=== PATIENT | male | born 1945 | race Caucasian/White ===

== ENCOUNTER 2016-07-23 19:08 | Emergency (ER) | payer MEDICARE, BC ==
[~2016-07-23] VITALS: Ht 170.2 cm; Wt 63.6 kg
[2016-07-23 19:15] VITALS: TEMP 97.3
[2016-07-23] MEDS ORDERED: ASPIRIN 81M81 MG/TA2 PO (19:18)
[2016-07-23] MEDS ORDERED: NATURE'S BL400 IU/ML PO (19:18)
[2016-07-23] MEDS ORDERED: PRINIVIL5 MG PO (19:18)
[2016-07-23] MEDS ORDERED: PROAIR HFA0.09 MG/AC IH (19:19)
[2016-07-23] MEDS ORDERED: ZITHROMAX 250M250 MG PO (21:16)
[2016-07-23] MEDS ORDERED: PREDNISONE20 MG PO (21:16)
[2016-07-23 21:31] VITALS: BP 139/87; PULSE 96
== END 2016-07-23 21:33 | disposition home or self-care (01) ==
LOC: COL.ER 19:08
DX: J44.0 Chronic obstructive pulmonary disease with (acute) lower respiratory infection (principal); J20.9 Acute bronchitis, unspecified; I10 Essential (primary) hypertension; F17.210 Nicotine dependence, cigarettes, uncomplicated
CPT/HCPCS: J7512

== ENCOUNTER 2016-10-03 06:36 | Emergency (ER) | payer MEDICARE, BC ==
[~2016-10-03] VITALS: Ht 170.2 cm; Wt 62.7 kg
[~2016-10-03 06:36] MED LIST: ASPIRIN 81M81 MG/TA2 PO; NATURE'S BL400 IU/ML PO; PREDNISONE20 MG PO; PRINIVIL5 MG PO; PROAIR HFA0.09 MG/AC IH; ZITHROMAX 250M250 MG PO
[2016-10-03 06:39] VITALS: PULSE 90; TEMP 97.7
[2016-10-03] MEDS ORDERED: ZITHROMAX Z PA250 MG PO (08:01)
[2016-10-03] MEDS ORDERED: PREDNISONE20 MG PO (08:01)
[2016-10-03 09:10] VITALS: BP 173/89
== END 2016-10-03 08:22 | disposition home or self-care (01) ==
LOC: COL.ER 06:36
DX: J44.1 Chronic obstructive pulmonary disease with (acute) exacerbation (principal); J20.9 Acute bronchitis, unspecified; J44.0 Chronic obstructive pulmonary disease with (acute) lower respiratory infection; I10 Essential (primary) hypertension; F17.210 Nicotine dependence, cigarettes, uncomplicated
CPT/HCPCS: J7512